=== PATIENT | male | born 1990 | race Caucasian/White ===

== ENCOUNTER 2019-01-06 10:57 | Emergency (ER) | payer OTHER, BC ==
--- NOTE | 2019-01-06 11:07 | EDM.PDOC ---
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 TD (?). Pt's metalizing supervisor put the tissue, which he cut off, in a plastic bag on ICE. Pt has FROM of his fingers, the CAP refill is less then 2 sec. The wound is active bleeding, moderately. No pulsatile bleed. No N/V/D or any other acute med. issues. BP 182/92 Pulse 98 RR 18 Pulse ox 98% on RA. Temp 37.1 Onset Date: 01/06/19 Onset Time: 09:00 Duration: Minutes:, Hour(s):, Constant Location: Reports: Upper Extremity, Left (index finger) Quality: Reports: Dull, Other (bleeding) Improves with: Reports: None Left Finger-Index Pain Score (Numeric/FACES): 3 - Related Data Allergies Allergy/AdvReac Type Severity Reaction Status Date / Time No Known Allergies Allergy Verified 03/09/15 16:44 Home Meds: Home Meds Osakis Carbonate [Eskalith CR] 1,800 mg PO BEDTIME 03/09/15 [History] Osakis Carbonate [Osakis Carbonate ER] 300 mg PO BEDTIME 03/09/15 [History] Ziprasidone HCl 160 mg PO BEDTIME 03/09/15 [History] clonazePAM [Clonazepam] 1 mg PO BEDTIME 03/09/15 [History] hydrOXYzine HCl [Atarax] 25 mg PO Q8H 03/09/15 [History] ED ROS GENERAL - Review of Systems Review Of Systems: See Below Constitutional: Reports: No Symptoms HEENT: Reports: No Symptoms Respiratory: Reports: No Symptoms Cardiovascular: Reports: No Symptoms Endocrine: Reports: No Symptoms GI/Abdominal: Reports: No Symptoms : Reports: No Symptoms Musculoskeletal: Reports: Hand Pain (left index finger) Skin: Reports: Wound (left index finger) Neurological: Reports: No Symptoms Psychiatric: Reports: No Symptoms Hematologic/Lymphatic: Reports: No Symptoms Immunologic: Reports: No Symptoms ED EXAM, SKIN/RASH Exam: See Below Exam Limited By: No Limitations General Appearance: Alert, WD/WN, Mild Distress Eye Exam: Bilateral Eye: Normal Inspection Ears: Normal External Exam Nose: Normal Inspection Throat/Mouth: Normal Inspection, Normal Lips, Normal Voice, No Airway Compromise Head: Atraumatic, Normocephalic Neck: Normal Inspection, Supple, Non-Tender Respiratory/Chest: No Respiratory Distress, Lungs Clear, Normal Breath Sounds, Chest Non-Tender Cardiovascular: Normal Peripheral Pulses, Regular Rate, Rhythm, No Edema, No Gallop, No Murmur, No Rub Peripheral Pulses: 1+: Brachial (L) GI/Abdominal: Normal Bowel Sounds, Soft, Non-Tender, No Organomegaly, No Mass (Male) Exam: No Hernia Rectal (Males) Exam: Deferred Back Exam: Normal Inspection, Full Range of Motion Extremities: Normal Range of Motion, Other (laceration left index finger tip) Neurological: Alert, Oriented, CN II-XII Intact Psychiatric: Normal Affect, Normal Mood Skin: Warm, Dry, Other Location, Skin: Other (lefyt index finger tip) Lymphatic: No Adenopathy Course - Vital Signs Text/Narrative:: 28 y.o.w.m 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 TD (?). Pt's metalizing supervisor put the tissue, which he cut off, in a plastic bag on ICE. Pt has FROM of his fingers, the CAP refill is less then 2 sec. The wound is active bleeding, moderately. No pulsatile bleed. No N/V/D or any other acute med. issues. BP 182/92 Pulse 98 RR 18 Pulse ox 98% on RA. Temp 37.1 PE: WNWD W M with a left active bleeding finger Laceration 11.05 am Consultation: Paula Boudreaux: Will see the pt in the ED Procedure: Please see Dr. David Miranda's note Impression: Left distal finger tip injury Tx: Wound care, TD, Rocephin. Pt refused pain meds Reexam; Improved Plan: D/C with instructions Last Recorded V/S: Last Vital Signs Temp 37.0 C 01/06/19 11:00 Pulse 96 01/06/19 11:00 Resp 18 01/06/19 11:00 BP 182/95 H 01/06/19 11:00 Pulse Ox 98 01/06/19 11:00 - Orders/Labs/Meds Orders: Active Orders 24 hr Category Date Time Status Vaccines to be Administered [RC] PER UNIT ROUTINE Care 01/06/19 12:41 Active Meds: Medications Discontinued Medications Generic Name Dose Route Start Last Admin Trade Name Neisha PRN Reason Stop Dose Admin Ceftriaxone Sodium 1 gm 01/06/19 11:27 Rocephin IM 01/06/19 11:28 ONETIME ONE Diphtheria/Tetanus/Acell Pertussis 0.5 ml 01/06/19 12:41 Adacel IM 01/06/19 12:42 .ONCE ONE Departure - Departure Time of Disposition: 12:43 Disposition: Home, Self-Care 01 Condition: Good Clinical Impression: Injury of tip of finger of left hand Qualifiers: Encounter type: initial encounter Qualified Code(s): S69.92XA - Unspecified injury of left wrist, hand and finger(s), initial encounter - Discharge Information Instructions: Constipation, Infant, [id number], Laceration Care, Adult, Easy- to-Read Referrals: Louis Bond MD [Primary Care Provider] - Forms: ED Department Discharge, ED Return to Work/School Form Additional Instructions: Please keep the wound dry and clean, please f/u with Dr. Miranda, Surgeon, this Tuesday, please f/u Dr. Miranda, Surgeon, instructions. Please take Tylenol/Motrin for pain, please come back to the ED if your symptoms get worse acutely - My Orders Last 24 Hours: My Active Orders 01/06/19 12:41 Vaccines to be Administered [RC] PER UNIT ROUTINE - Assessment/Plan Last 24 Hours: My Active Orders 01/06/19 12:41 Vaccines to be Administered [RC] PER UNIT ROUTINE
[2019-01-06 11:26] VITALS: BP 182/95
[2019-01-06] MEDS ORDERED: cefTRIAXone 1 GM Vial IM ONE (11:27)
[2019-01-06] MEDS ORDERED: Diphtheria,Pertussis(Acell),Tetanus Vaccine 0.5 ML SDV IM ONE (12:41)
--- NOTE | 2019-01-06 13:07 | ER ---
DATE OF PROCEDURE: 01/06/2019 This 28-year-old male was working at [employer] when he was cutting a belt with a sharp knife. The knife slipped and he sustained a tangential laceration to the tip of his left index finger. The injury is on the radial side and resulted in removal of 1 x 1.5 cm area of skin. A small corner of the nail was included in the injury, but the underlying bone and majority of the fatty tissue remained uninjured. The patient presents bringing in the piece of skin that was cut off. The remainder of the finger appears normal. A digital block of 0.5% Marcaine was administered and then cautery was used to control bleeding in the wound. The piece of skin brought in was debrided and then it was secured back covering the open wound with interrupted 4-0 Prolene sutures. This will act as a dressing as the underlying wound heals. Antibiotic ointment and a sterile dressing were placed. The procedure was well tolerated by the patient. He was carefully instructed to elevate the hand, to leave the dressing in place until he comes in to see me in the outpatient clinic in two days. Tetanus booster and a shot of Rocephin were given as well. If he has further difficulty over the weekend, then he will call or come back to the emergency room for re-evaluation. /[id number]
== END 2019-01-06 12:56 | disposition home or self-care (01) ==
LOC: FB.ED 10:57
DX: S61.211A Laceration without foreign body of left index finger without damage to nail, initial encounter (principal); Z23 Encounter for immunization; W26.0XXA Contact with knife, initial encounter
CPT/HCPCS: 12001; 90471; 90715; 96372; 99283; J0696; 12013; 90472